=== PATIENT | male | born 1935 | race Caucasian/White ===

== ENCOUNTER 2018-06-15 19:24 | Emergency (ER) | payer MEDICARE ==
[2018-06-15] MEDS ORDERED: GENTAMICIN SULFATE 0.3% OPTH 5 ML BTL OPTH ONE (20:43)
[2018-06-15] MEDS ORDERED: AMOXICILLIN/POTASSIUM CLAV 875MG/125MG TABLET PO ONE (20:43)
--- NOTE | 2018-06-15 20:44 | Emergency Department Record ---
History of Present Illness - General Chief complaint: Eye Problem Stated complaint: EYE SWOLLEN Time Seen by Provider: 06/15/18 19:44 Source: Patient, Family Mode of Arrival: Wheelchair Limitations: No limitations Travel/Exposure to [place] Within 21 Days of Symptoms: No - History of Present Illness Initial comments: pt is here because he has redness and irritation of his l eye. he recently was hospitalized for r periorbital cellulitis at [facility]. chief complaint: Eye pain, Eye redness Onset/Timin -: Days(s) Onset Description: Gradual Location: Left eye Place: Home Eye Symptoms: Redness Severity: Mild If Pain, Quality: Burning Consistency: Constant Associated Symptoms: None Treatments Prior to Arrival: None - Related Data Home Medications Medication Instructions Recorded Confirmed Last Taken Alprazolam [Xanax] 0.5 mg PO TID PRN 06/15/18 06/15/18 Unknown Aspirin 81 mg PO DAILY 06/15/18 06/15/18 Unknown Atorvastatin Calcium [Lipitor] 40 mg PO QPM 06/15/18 06/15/18 Unknown Cholecalciferol (Vitamin D3) 1,000 unit PO DAILY 06/15/18 06/15/18 Unknown [Vitamin D3] Lamotrigine [Lamictal] 25 mg PO QPM 06/15/18 06/15/18 Unknown Levothyroxine Sodium 88 mcg PO DAILY 06/15/18 06/15/18 Unknown Losartan Potassium [Cozaar] 25 mg PO DAILY 06/15/18 06/15/18 Unknown Pantoprazole Sodium [Protonix] 20 mg PO DAILY 06/15/18 06/15/18 Unknown Previous Rx's Medication Instructions Recorded Amoxicillin/Potassium Clav 1 tab PO BID #14 tab 06/15/18 [Augmentin 875-125 Tablet] Allergies Allergy/AdvReac Type Severity Reaction Status Date / Time clindamycin Allergy SWELLING Verified 06/15/18 20:42 OF THE TONGUE Travel Screening - Travel/Exposure Within Last 30 Days Have you traveled within the last 30 days?: No - Travel Symptoms Symptom Screening: None Review of Systems Reviewed: No additional complaints except as noted below Constitutional: Reports: As per HPI. Denies: Chills, Fever, Malaise, Night sweats, Weakness, Weight change Eyes: Reports: As per HPI. Denies: Eye discharge, Eye pain, Photophobia, Vision change ENT: Reports: As per HPI. Denies: Congestion, Dental pain, Ear pain, Epistaxis , Hearing loss, Throat pain Respiratory: Reports: As per HPI. Denies: Cough, Dyspnea, Hemoptysis, Stridor, Wheezes Cardiovascular: Reports: As per HPI. Denies: Arrhythmia, Chest pain, Dyspnea on exertion, Edema, Murmurs, Orthopnea, Palpitations, Paroxysmal nocturnal dyspnea, Rheumatic Fever, Syncope Endocrine: Reports: As per HPI. Denies: Fatigue, Heat or cold intolerance, Polydipsia, Polyuria Gastrointestinal: Reports: As per HPI. Denies: Abdominal pain, Constipation, Diarrhea, Hematemesis, Hematochezia, Melena, Nausea, Vomiting Genitourinary: Reports: As per HPI. Denies: Dysuria, Frequency, Hematuria, Incontinence, Retention, Testicular pain, Testicular mass, Urgency Musculoskeletal: Reports: As per HPI. Denies: Arthralgia, Back pain, Gout, Joint swelling, Myalgia, Neck pain Skin: Reports: As per HPI. Denies: Bruising, Change in color, Change in hair/ nails, Lesions, Pruritus, Rash Neurological: Reports: As per HPI. Denies: Abnormal gait, Confusion, Headache, Numbness, Paresthesias, Seizure, Tingling, Tremors, Vertigo, Weakness Psychiatric: Reports: As per HPI. Denies: Anxiety, Auditory hallucinations, Depression, Homicidal thoughts, Suicidal thoughts, Visual hallucinations Hematological/Lymphatic: Reports: As per HPI. Denies: Anemia, Blood Clots, Easy bleeding, Easy bruising, Swollen glands Past Medical History - SOCIAL HISTORY Smoking Status: Former smoker - RESPIRATORY Hx Respiratory Disorders: Yes Hx Sleep Apnea: Yes Hx of CPAP: Yes (just not lately) - CARDIOVASCULAR Hx Cardio Disorders: Yes Hx Edema: Yes (blockage in LLE) Hx Hypertension: Yes Comment:: high cholesterol - NEURO Hx Neuro Disorders: No - GI Hx GI Disorders: Yes Hx Reflux: Yes Hx Hiatal Hernia: Yes Comment:: Irregular BM's - Hx Genitourinary Disorders: No - ENDOCRINE Hx Endocrine Disorders: Yes Hx Thyroid Disease: Yes - MUSCULOSKELETAL Hx Musculoskeletal Disorders: Yes Hx Arthritis: Yes - PSYCH Hx Psych Problems: Yes Hx Anxiety: Yes Hx Depression: Yes (recent loss of ) - HEMATOLOGY/ONCOLOGY Hx Hematology/Oncology Disorders: Yes Hx Anemia: Yes Family Medical History Any Significant Family History?: Yes Hx Diabetes: Brother/Sister Hx Heart Disease: Father Physical Exam - General General Appearance: Alert, Oriented x3, Cooperative, Mild distress - Head Head exam: Normal inspection - Eye Eye exam: Normal appearance, PERRL, Conjunctival injection, EOMI Pupils: Normal accommodation - ENT ENT exam: Normal exam, Mucous membranes moist, Normal external ear exam, Normal orophraynx Ear exam: Normal external inspection. negative: External canal tenderness Nasal Exam: Normal inspection. negative: Discharge, Sinus tenderness Mouth exam: Normal external inspection, Tongue normal Teeth exam: Normal inspection. negative: Dental caries Throat exam: Normal inspection. negative: Tonsillar erythema, Tonsillar exudate - Neck Neck exam: Normal inspection, Full ROM. negative: Tenderness - Respiratory Respiratory exam: Normal lung sounds bilaterally. negative: Respiratory distress - Cardiovascular Cardiovascular Exam: Regular rate, Normal rhythm, Normal heart sounds - GI/Abdominal GI/Abdominal exam: Soft, Normal bowel sounds. negative: Tenderness - Rectal Rectal exam: Deferred - exam: Deferred - Extremities Extremities exam: Normal inspection, Full ROM, Normal capillary refill. negative: Tenderness - Back Back exam: Reports: Normal inspection, Full ROM. Denies: Muscle spasm, Rash noted, Tenderness - Neurological Neurological exam: Alert, CN II-XII intact, Normal gait, Oriented X3 - Psychiatric Psychiatric exam: Normal affect, Normal mood - Skin Skin exam: Dry, Intact, Normal color, Warm Course Vital Signs 06/15/18 19:31 Temperature 97.8 F Pulse Rate [ 68 Pulse Ox Probe] Respiratory 20 Rate Blood Pressure 150/74 [Left Arm] Pulse Ox 98 Disposition Disposition: Discharge Clinical Impression: Conjunctivitis Qualifiers: Conjunctivitis type: acute Acute conjunctivitis type: bacterial Laterality: left Qualified Code(s): H10.32 - Unspecified acute conjunctivitis, left eye Disposition: Home, Self-Care Condition: (1) Good Instructions: Conjunctivitis (ED) Additional Instructions: follow up with ophthamologist. return sooner if worse. gentamycin drops 2 drops 4 times a day for 5 days Prescriptions: Amoxicillin/Potassium Clav [Augmentin 875-125 Tablet] 1 tab PO BID #14 tab Quality - Blood Pressure Screening Does Patient Have Any of the Following: No Blood Pressure Classification: Hypertensive Reading Systolic Measurement: 150 Diastolic Measurement: 74
== END 2018-06-15 21:13 | disposition home or self-care (01) ==
LOC: ER 19:24
DX: H10.32 Unspecified acute conjunctivitis, left eye (principal)
CPT/HCPCS: 99282

== ENCOUNTER 2018-12-31 06:27 | Day surgery (SDC) | payer MEDICARE ==
[~2018-12-31 06:27] MED LIST: ACETAMINOPHEN 1,000 MG/100 ML BTL IV ONE
[2018-12-31] MEDS ORDERED: MIDAZOLAM HCL 2MG/2ML VIAL IV ONE (06:28)
[2018-12-31] MEDS ORDERED: FENTANYL PF 100MCG/2ML VIAL IV ONE (06:28)
[2018-12-31] MEDS ORDERED: PROPOFOL 10 MG/ML VIAL IV ONE (06:28)
[2018-12-31] MEDS ORDERED: LIDOCAINE 2% MDV (20MG/ML) 20ML VIAL IV ONE (06:28)
[2018-12-31] MEDS ORDERED: RINGERS SOLUTION,LACTATED 1,000 ML IV ONE (06:55)
[2018-12-31] MEDS ORDERED: BUPIVACAINE 0.25% W/EPI MPF 30ML VIAL SQ ONE (08:32)
[2018-12-31] MEDS ORDERED: RINGERS LACTATED IV ONE (08:36)
--- NOTE | 2019-01-01 09:20 | Operative Note ---
DATE OF SERVICE: 12/31/2018. DATE OF SURGERY: 12/31/2018. PREOPERATIVE DIAGNOSIS: Left lower extremity weakness. POSTOPERATIVE DIAGNOSIS: Left lower extremity weakness. OPERATION: Excisional biopsy, left vastus lateralis. SURGEON: Eric Rothman D.O. REFERRING PHYSICIAN: Oliverio Blackburn D.O. INDICATION: Patient is an 83-year-old male who comes in for left lower extremity biopsy to rule out myositis or any other cause for his left lower extremity weakness. PROCEDURE: He was brought to the operating room, placed in the supine position. Local, IV sedation was given per Department of Anesthesia. Patient's left leg was prepped in usual fashion. At the junction of the lateral aspect of his left vastus lateralis, this area was prepped and draped in usual fashion. Area over the muscle was anesthetized with 10 mL of 0.25% Sensorcaine with epinephrine. A 3.5 cm incision was made. This was carried down to the fascia overlying the left vastus lateralis. This was incised. A 3 x 3 cm piece of muscle was excised and passed off the field. This was placed in a saline-soaked gauze specimen container. The wound was noted to be hemostatic. The fascia overlying the muscle was closed with 2-0 Vicryl. The skin was closed with 3 and 4-0 Vicryl. He was taken to recovery in satisfactory condition. Final pathology pending. [facility]
== END 2018-12-31 09:18 | disposition home or self-care (01) ==
LOC: SUR 06:27
PROVIDERS: ATTEND Surgery
DX: M62.81 Muscle weakness (generalized) (principal); I10 Essential (primary) hypertension; E78.00 Pure hypercholesterolemia, unspecified; E78.5 Hyperlipidemia, unspecified; E03.9 Hypothyroidism, unspecified
CPT/HCPCS: J7120

== ENCOUNTER 2019-01-10 10:00 | Emergency (ER) | payer MEDICARE ==
--- NOTE | 2019-01-10 11:19 | Emergency Department Record ---
History of Present Illness - General Chief Complaint: Neck Injury/Pain Stated Complaint: NECK PAIN Time Seen by Provider: 01/10/19 11:12 Source: Patient Mode of Arrival: Ambulatory - History of Present Illness Initial Comments: The patient has fallen 5 times since July and his neck has been hurting on and off since then. He went to [facility] in October and he states his xray was negative then. When he tried to pick his head up from laying flat there is pain down his left arm or sometimes his right arm. His PCP ordered blood work and put him on prednisone which he says helped. Onset/Timin -: Month(s) Associated Symptoms: None Treatments Prior to Arrival: None - Related Data Home Medications Medication Instructions Recorded Confirmed Last Taken Prednisone [Prednisone 10Mg] 10 mg PO DAILY 01/10/19 01/10/19 01/10/19 Tramadol HCl [Ultram] 50 mg PO Q6H 01/10/19 01/10/19 01/09/19 Allergies Allergy/AdvReac Type Severity Reaction Status Date / Time clindamycin Allergy SWELLING Verified 01/10/19 10:41 OF THE TONGUE Travel Screening - Travel/Exposure Within Last 30 Days Have you traveled within the last 30 days?: No - Travel/Exposure Within Last Year Have you traveled outside the [place] in the last year?: No - Additonal Travel Details Have you been exposed to anyone with a communicable illness?: No - Travel Symptoms Symptom Screening: None Review of Systems Reviewed: No additional complaints except as noted below Constitutional: Reports: As per HPI. Denies: Chills, Fever, Malaise, Night sweats, Weakness, Weight change Eyes: Reports: As per HPI. Denies: Eye discharge, Eye pain, Photophobia, Vision change ENT: Reports: As per HPI. Denies: Congestion, Dental pain, Ear pain, Epistaxis , Hearing loss, Throat pain Respiratory: Reports: As per HPI. Denies: Cough, Dyspnea, Hemoptysis, Stridor, Wheezes Cardiovascular: Reports: As per HPI. Denies: Arrhythmia, Chest pain, Dyspnea on exertion, Edema, Murmurs, Orthopnea, Palpitations, Paroxysmal nocturnal dyspnea, Rheumatic Fever, Syncope Endocrine: Reports: As per HPI. Denies: Fatigue, Heat or cold intolerance, Polydipsia, Polyuria Gastrointestinal: Reports: As per HPI. Denies: Abdominal pain, Constipation, Diarrhea, Hematemesis, Hematochezia, Melena, Nausea, Vomiting Genitourinary: Reports: As per HPI. Denies: Dysuria, Frequency, Hematuria, Incontinence, Retention, Testicular pain, Testicular mass, Urgency Musculoskeletal: Reports: As per HPI. Denies: Arthralgia, Back pain, Gout, Joint swelling, Myalgia, Neck pain Skin: Reports: As per HPI. Denies: Bruising, Change in color, Change in hair/ nails, Lesions, Pruritus, Rash Neurological: Reports: As per HPI. Denies: Abnormal gait, Confusion, Headache, Numbness, Paresthesias, Seizure, Tingling, Tremors, Vertigo, Weakness Psychiatric: Reports: As per HPI. Denies: Anxiety, Auditory hallucinations, Depression, Homicidal thoughts, Suicidal thoughts, Visual hallucinations Hematological/Lymphatic: Reports: As per HPI. Denies: Anemia, Blood Clots, Easy bleeding, Easy bruising, Swollen glands Past Medical History - SOCIAL HISTORY Smoking Status: Former smoker Alcohol Use: None Drug Use: None - RESPIRATORY Hx Respiratory Disorders: Yes Hx Bronchitis: Yes (not recently) Hx COPD: No Hx Sleep Apnea: Yes Hx of CPAP: Yes (just not lately) Comment:: has dry chronic cough - CARDIOVASCULAR Hx Cardio Disorders: Yes Hx Edema: Yes (blockage in LLE) Hx Hypertension: Yes - NEURO Hx Neuro Disorders: No Hx Dizziness: Yes (with rapid position change) Hx Parkinson's Disease: No (rt hand gets shakey) Hx Weakness: Yes (both legs) - GI Hx GI Disorders: Yes Hx Reflux: Yes Hx Hiatal Hernia: Yes - Hx Genitourinary Disorders: No - ENDOCRINE Hx Endocrine Disorders: Yes Hx Thyroid Disease: Yes - MUSCULOSKELETAL Hx Musculoskeletal Disorders: Yes Hx Arthritis: Yes - PSYCH Hx Psych Problems: Yes Hx Anxiety: Yes - HEMATOLOGY/ONCOLOGY Hx Hematology/Oncology Disorders: Yes Hx Anemia: Yes Family Medical History Any Significant Family History?: No Hx Cancer: Brother/Sister *Cancer Comment: sister Hx Diabetes: Brother/Sister *Diabetes Comment: sister & brother Hx Heart Disease: Father Hx HTN: Brother/Sister Hx Seizures: Children *Seizure Comment: daughter Physical Exam - General General Appearance: Alert, Oriented x3, Cooperative, No acute distress - Head Head exam: Normal inspection - Eye Eye exam: Normal appearance, PERRL Pupils: Normal accommodation - ENT ENT exam: Normal exam, Mucous membranes moist, Normal external ear exam, Normal orophraynx, TM's normal bilaterally Ear exam: Normal external inspection. negative: External canal tenderness Nasal Exam: Normal inspection. negative: Discharge, Sinus tenderness Mouth exam: Normal external inspection, Tongue normal Teeth exam: Normal inspection. negative: Dental caries Throat exam: Normal inspection. negative: Tonsillar erythema, Tonsillar exudate - Neck Neck exam: Normal inspection, Full ROM, Tenderness (tender midline posteriorly mid cervical region.). negative: Lymphadenopathy, Meningismus - Respiratory Respiratory exam: Normal lung sounds bilaterally. negative: Respiratory distress - Cardiovascular Cardiovascular Exam: Regular rate, Normal rhythm, Normal heart sounds - GI/Abdominal GI/Abdominal exam: Soft, Normal bowel sounds. negative: Tenderness - Rectal Rectal exam: Deferred - exam: Deferred - Extremities Extremities exam: Normal inspection, Full ROM, Normal capillary refill. negative: Tenderness - Back Back exam: Reports: Normal inspection, Full ROM. Denies: Muscle spasm, Rash noted, Tenderness - Neurological Neurological exam: Alert, Normal gait, Oriented X3, Reflexes normal - Psychiatric Psychiatric exam: Normal affect, Normal mood - Skin Skin exam: Dry, Intact, Normal color, Warm Course Vital Signs 01/10/19 10:29 Temperature 97.8 F Pulse Rate 84 Respiratory 16 Rate Blood Pressure 128/74 Pulse Ox 98 Medical Decision Making - Management Options MDM Management: No Additional Work-up Planned - Data Complexity MDM Data: X-Ray Ordered and/or Reviewed (Noncontrast CT Cervical Spine: No acute fracture of subluxation. Multilevel degen. changes and multilevel narrowing of neuro formamina of Cervical spine.) Disposition Clinical Impression: Cervical disc disorder with radiculopathy of cervical region Disposition: Home, Self-Care Condition: (1) Good Instructions: Cervical Radiculopathy (ED), Neck Pain (ED) Additional Instructions: Continue present medications. No lifting with arms. No bending or twisting with upper body. Follow up with PCP for pain management and further consultation as needed. Quality - Quality Measures Quality Measures: N/A - Blood Pressure Screening Does Patient Have Any of the Following: No Blood Pressure Classification: Pre-Hypertensive BP Reading Systolic Measurement: 128 Diastolic Measurement: 74 Screening for High Blood Pressure: < Normal BP, F/U Not Required > [G8783]
[2019-01-10] MEDS ORDERED: ACETAMINOPHEN 325 MG TAB PO ONE (11:21)
--- NOTE | 2019-01-12 15:38 | CT SCAN REPORT ---
EXAM: CT SCAN CERVICAL SPINE WO CONTRAST HISTORY: FALL WITH NECK PAIN. TECHNIQUE: Noncontrast CT cervical spine. COMPARISON: None. FINDINGS: No acute fracture is seen. No evidence of dislocation. Significant disc space height loss at C5-6 with associated endplate osteophytes and bulge. Multilevel facet joint arthrosis. No definite high grade central spinal canal stenosis appreciated. Neural foraminal narrowing noted most prominently on the left at C2-3, bilaterally at C3-4, bilaterally at C4-5, bilaterally at C5-6. Visualized upper lungs are clear. Unremarkable CT appearance of the paravertebral soft tissues. Bilateral carotid artery calcifications are noted. IMPRESSION: 1. NO EVIDENCE OF ACUTE CERVICAL SPINE FRACTURE OR DISLOCATION. 2. 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 JOB NUMBER: [id number] MTDD
== END 2019-01-10 13:05 | disposition home or self-care (01) ==
LOC: ER 10:00
DX: M50.10 Cervical disc disorder with radiculopathy, unspecified cervical region (principal); I10 Essential (primary) hypertension; Z87.891 Personal history of nicotine dependence
CPT/HCPCS: 72125; 99283

== ENCOUNTER 2019-03-15 15:23 | Emergency (ER) | payer MEDICARE ==
[2019-03-15] MEDS ORDERED: 0.9 % SODIUM CHLORIDE 1,000 ML BAG IV ONE (15:33)
[2019-03-15] MEDS ORDERED: ONDANSETRON HCL IV 4 MG/2 ML VIAL IVP ONE ×2 (15:33→18:31)
--- NOTE | 2019-03-15 15:34 | Emergency Department Record ---
History of Present Illness - General Chief complaint: ENT Stated complaint: RT EYE SWELLING Time Seen by Provider: 03/15/19 15:27 Source: Patient, Family Mode of Arrival: Ambulatory Limitations: No limitations - History of Present Illness Initial comments: 83 yo male presents with progressive weakness, poor appetite and weight loss over several months. Today he developed nausea and dry heaves. He attributes it to a new antidepressant this week. No diarrhea. No abdominal pain. He saw his PCP Dr Blackburn earlier in the week. He was started on Trintellix. His last year and this has affected him. He has be fatigued, poor sleep either too much or unable. NO fevers. No chills. He regards his energy level as low. No chest pain. About 2-3 weeks ago he developed a chest cold that is nearly gone. No pain with eating, just no appetite. He developed lid swelling around the left eye over the last two days. Occasionally pain. He has some clear tears. No pus or crusting. With the lid swelling and tears if effects his vision. No injury to the eye. Additional history provided by the daughter. Similar history that he is weak, no appetite, anxious, depressed. MD complaint: Nausea, Vomiting, Other (Left eye swelling) -: Days(s) Description of Vomiting: Watery Description of Diarrhea: Water Associated Abdominal Pain: No Radiation: None Severity: Mild Improves with: Other Worsens with: Other Context: Other Associated Symptoms: Other - Related Data Home Medications Medication Instructions Recorded Confirmed Last Taken Vortioxetine Hydrobromide 5 mg PO DAILY 03/15/19 03/15/19 1 Day Ago [Trintellix] ~03/14/19 Allergies Allergy/AdvReac Type Severity Reaction Status Date / Time clindamycin Allergy SWELLING Verified 03/15/19 15:34 OF THE TONGUE Review of Systems Constitutional: Reports: Malaise, Weakness, Weight change. Denies: Chills, Fever, Night sweats Eyes: Reports: Eye discharge (clear on the left), Vision change. Denies: Eye pain, Photophobia ENT: Denies: Congestion, Throat pain Respiratory: Reports: As per HPI (2-3 weeks ago "chest cold"), Cough. Denies: Dyspnea, Hemoptysis, Stridor, Wheezes Cardiovascular: Denies: Chest pain, Edema, Palpitations, Syncope Endocrine: Reports: Fatigue. Denies: Polydipsia, Polyuria Gastrointestinal: Reports: Nausea, Vomiting. Denies: Abdominal pain, Constipation, Diarrhea, Melena Genitourinary: Denies: Dysuria, Frequency, Hematuria Musculoskeletal: Denies: Arthralgia, Back pain, Myalgia, Neck pain Skin: Denies: Bruising, Change in color, Rash Neurological: Reports: Weakness (generalized). Denies: Confusion, Headache, Numbness Psychiatric: Denies: Anxiety Hematological/Lymphatic: Denies: Blood Clots, Easy bleeding, Easy bruising Past Medical History - SOCIAL HISTORY Smoking Status: Former smoker Drug Use: None - RESPIRATORY Hx Respiratory Disorders: Yes Hx Bronchitis: Yes (not recently) Hx COPD: No Hx Sleep Apnea: Yes Hx of CPAP: Yes (just not lately) Comment:: has dry chronic cough - CARDIOVASCULAR Hx Cardio Disorders: Yes Hx Edema: Yes (blockage in LLE) Hx Hypertension: Yes - NEURO Hx Neuro Disorders: No Hx Dizziness: Yes (with rapid position change) Hx Parkinson's Disease: No (rt hand gets shakey) Hx Weakness: Yes (both legs) - GI Hx GI Disorders: Yes Hx Reflux: Yes Hx Hiatal Hernia: Yes - Hx Genitourinary Disorders: No - ENDOCRINE Hx Endocrine Disorders: Yes Hx Thyroid Disease: Yes - MUSCULOSKELETAL Hx Musculoskeletal Disorders: Yes Hx Arthritis: Yes - PSYCH Hx Psych Problems: Yes Hx Anxiety: Yes - HEMATOLOGY/ONCOLOGY Hx Hematology/Oncology Disorders: Yes Hx Anemia: Yes Family Medical History Hx Cancer: Brother/Sister *Cancer Comment: sister Hx Diabetes: Brother/Sister *Diabetes Comment: sister & brother Hx Heart Disease: Father Hx HTN: Brother/Sister Hx Seizures: Children *Seizure Comment: daughter Physical Exam - General General Appearance: Alert, Oriented x3, Cooperative, No acute distress Limitations: No limitations - Head Head exam: Atraumatic, Normocephalic, Normal inspection, Other (Scalp is not tender) Head exam detail: Other (no scalp rash) - Eye Eye exam: PERRL, Conjunctival injection, EOMI, Periorbital swelling (soft lid swelling, no warmth or redness. Clear tears. Not tender. ), Other (No abnormal warmth or erythema of the lid). negative: Normal appearance, Periorbital tenderness, Scleral icterus Pupils: negative: Irregular, Unequal Visual acuity (L) = 20/: 200 Visual acuity (R) = 20/: 25 With correction: Yes - ENT ENT exam: Normal exam, Mucous membranes moist, Normal orophraynx. negative: Muc ous membranes dry Ear exam: Normal external inspection Nasal Exam: Normal inspection Mouth exam: Normal external inspection Teeth exam: Normal inspection Throat exam: Normal inspection. negative: Tonsillar erythema, Tonsillomegaly - Neck Neck exam: Normal inspection, Full ROM. negative: Lymphadenopathy, Meningismus, Tenderness - Respiratory Respiratory exam: Rhonchi. negative: Accessory muscle use, Chest wall tenderness, Decreased breath sounds, Prolonged expiratory, Respiratory distress, Wheezes - Cardiovascular Cardiovascular Exam: Regular rate, Normal rhythm, Normal heart sounds Peripheral Pulses: 2+: Radial (R), Radial (L) - GI/Abdominal GI/Abdominal exam: Soft. negative: Distended, Guarding, Tenderness - Rectal Rectal exam: Deferred - exam: Deferred - Extremities Extremities exam: Normal inspection. negative: Pedal edema, Tenderness - Back Back exam: Denies: CVA tenderness (R), CVA tenderness (L) - Neurological Neurological exam: Alert, Oriented X3. negative: Altered - Psychiatric Psychiatric exam: Normal affect, Normal mood. negative: Agitated, Anxious - Skin Skin exam: Dry, Intact, Normal color, Warm Course - Reevaluation(s) Reevaluation #1: The CBC and CMP was reviewed No significant changes Mild anemia not significantly changed from a prior 03/15/19 16:13 EKG #1: 15:39 Rate: 67 Rhythm: sinus [place]: normal Intervals: Qtc 492 ST segments: CW LVH Prior: none The EYE was stained No uptake The AC is clear. Mild conjuctival injection EOMI Chemosis noted of the conjunctiva 03/15/19 18:[address] was read as orbital and periorbital edema with mild exophthalmos The CRP returned elevated at 9 The CRP is elevated at 101 The differential includes but is not limited to inflammatory, infectious, allergic Given the elevated inflammatory markers I recommend transfer for further work up where specialty consultation is available The patient prefers [facility] 03/15/19 18:19 [facility] contacted for transfer. Medical Decision Making - Lab Data Result diagrams: 03/15/19 15:40 03/15/19 15:40 Disposition Disposition: Transfer Clinical Impression: Nausea & vomiting, Orbital swelling, Elevated sedimentation rate, Elevated C- reactive protein (CRP) Disposition: Acute Care Hospital Transfer Transfer To: [facility] Reason For Transfer: Specialty consultation Accepting Physician: Jose Time Discussed w/Accepting Physician: 18:33 Condition: (2) Stable Forms: Patient Portal Access Time of Disposition: 18:11 Quality - Quality Measures Quality Measures: N/A - Blood Pressure Screening Does Patient Have Any of the Following: No Blood Pressure Classification: Pre-Hypertensive BP Reading Systolic Measurement: 159 Diastolic Measurement: 83 Screening for High Blood Pressure: < Pre-Hypertensive BP, F/U Documented > [G8950] Pre-Hypertensive Follow-up Interventions: Referral to alternative/primary care provider.
[2019-03-15 15:49] LABS: ABSOLUTE NEUTROPHIL COUNT 2.91; BASO % 0.3 % (0-6); EOS % 0.3 % (0-6); GRAN % 75.7 % (47-80); HEMATOCRIT 35.9 % (42.0-52.0); HEMOGLOBIN 11.6 gm/dl (14.0-18.0); LYMPH % 20.6 % (16-45); MEAN CELL VOLUME 104.1 fl (81-97); MEAN CORPUSCULAR HEMOGLOBIN 33.6 pg (27-33); MEAN CORPUSCULAR HGB CONC 32.3 g/dl (32-36); MEAN PLATELET VOLUME 8.6 fl (7.4-10.4); MONO % 3.1 % (0-9); PLATELET COUNT 315 K/uL (130-400); RED BLOOD COUNT 3.45 M/uL (4.40-5.70); WHITE BLOOD COUNT W/O DIFF 3.8 K/uL (4.2-12.2)
[2019-03-15 16:03] LABS: BLOOD UREA NITROGEN 18 mg/dL (8-23); CREATININE 0.6 mg/dL (0.7-1.2); EST GLOMERULAR FILTRATION RATE > 60 mL/min
[2019-03-15 16:04] LABS: TOTAL PROTEIN 7.9 g/dL (6.6-8.7)
[2019-03-15 16:06] LABS: GLUCOSE,RANDOM 140 mg/dL (74-109)
[2019-03-15 16:09] LABS: ALB/GLOB RATIO 0.8 (1.1-1.8); ALBUMIN 3.6 g/dL (4.0-5.0); ALKALINE PHOSPHATASE 100 U/L (40-129); ALT/SGPT 15 U/L (<41); AST/SGOT 19 U/L (10.0-50.0)
[2019-03-15 16:19] LABS: THYROID STIMULATING HORMONE 2.13 uIU/mL (0.270-4.20)
[2019-03-15 17:02] LABS: URINE APPEARANCE CLEAR; URINE BILIRUBIN NEGATIVE (NEGATIVE); URINE BLOOD TRACE-L (NEGATIVE); URINE COLOR YELLOW; URINE GLUCOSE (UA) NEGATIVE (NEGATIVE); URINE KETONE NEGATIVE (NEGATIVE); URINE LEUKOCYTE ESTERASE NEGATIVE (NEGATIVE); URINE NITRITE NEGATIVE (NEGATIVE); URINE PROTEIN NEGATIVE (NEGATIVE)
[2019-03-15 17:09] LABS: URINE BACTERIA NONE SEEN; URINE EPITHELIAL CELLS NONE SEEN (FEW); URINE RBC 0 - 2 (NONE SEEN); URINE WBC NONE SEEN (0-2/hpf)
[2019-03-15] MEDS ORDERED: METHYLPREDNISOLONE PF 125MG/VIAL IM ONE (18:05)
[2019-03-15] MEDS ORDERED: PIPERACILLIN SODIUM/TAZOBACTAM 4.5 GM in 0.9 % SODIUM CHLORIDE 100ML 100 ML IVPB ONE (18:05)
[2019-03-15] MEDS ORDERED: VANCOMYCIN HCL 1,000 MG in 0.9 % SODIUM CHLORIDE 250ML 250 ML IVPB ONE (18:31)
--- NOTE | 2019-03-18 17:49 | RADIOLOGY REPORT ---
EXAM: CHEST 2 VIEWS HISTORY: COUGH FOR THE PAST TWO WEEKS. NAUSEA AND DRY HEAVING. TECHNIQUE: AP and lateral upright views of the chest were obtained. COMPARISON: None. FINDINGS: There are low lung volumes. A moderate-sized hiatal hernia is present. The heart is upper normal in size. The mediastinum and pulmonary vasculature are normal. There is blunting of the left costophrenic angle suggesting a small effusion. There is minor bibasilar atelectasis. There are no visible acute pulmonary infiltrates. There is no pneumothorax. Degenerative changes are present within the spine and shoulders. IMPRESSION: 1. SMALL LEFT PLEURAL EFFUSION AND MILD BIBASILAR ATELECTASIS. 2. NO ACUTE PULMONARY INFILTRATES. 3. MODERATE HIATAL HERNIA. JOB NUMBER: [id number] MTDD
--- NOTE | 2019-03-18 18:22 | CT SCAN REPORT ---
EXAM: CT SCAN HEAD WO CONTRAST HISTORY: VERTIGO WITH LEFT FRONTOPARIETAL HEADACHE. SWOLLEN LEFT EYE. SYMPTOMS FOR THE PAST THREE DAYS. TECHNIQUE: Standard CT imaging of the brain was performed in the axial plane without contrast. HAND DOMINANCE: Right. ENCOUNTER: Not applicable. COMPARISON: None. FINDINGS: There is mild generalized atrophy. The ventricles and subarachnoid spaces are normal. Moderate chronic small vessel ischemic changes are present within the periventricular and subcortical white matter of both cerebral hemispheres. There is no mass, mass effect, intracranial hemorrhage, visible acute infarct, or abnormal extra-axial fluid. The skull is intact. There is mild non-specific fat stranding within the intraorbital fat with mild associated exophthalmus. Mild left periorbital soft tissue swelling is also present. The sinuses and mastoids are clear. IMPRESSION: 1. NO ACUTE INTRACRANIAL ABNORMALITY. 2. MILD ATROPHY AND MODERATE CHRONIC SMALL VESSEL ISCHEMIC CHANGES. 3. MILD LEFT INTRAORBITAL AND PERIORBITAL SOFT TISSUE SWELLING. Findings discussed with Dr. Landon Hernandez. JOB NUMBER: [id number] [facility]
== END 2019-03-15 20:03 | disposition short-term general hospital (02) ==
LOC: ER 15:23
DX: R70.0 Elevated erythrocyte sedimentation rate (principal); R79.82 Elevated C-reactive protein (CRP); H05.221 Edema of right orbit; R53.1 Weakness; R63.4 Abnormal weight loss; R11.2 Nausea with vomiting, unspecified; D64.9 Anemia, unspecified; R05 Cough; I10 Essential (primary) hypertension; Z87.891 Personal history of nicotine dependence
CPT/HCPCS: 70450; 71046; 80053; 81001; 83735; 84443; 85025; 85651; 86140; 93005; 93010; 96361; 96372; 96374; 96375; 99285; J2405; J2930; J7030; J7050

== ENCOUNTER 2019-04-04 10:20 | Day surgery (SDC) | payer MEDICARE ==
[2019-04-04] MEDS ORDERED: PROPOFOL 10 MG/ML VIAL IV ONE (10:21)
[2019-04-04] MEDS ORDERED: LIDOCAINE 2% MDV (20MG/ML) 20ML VIAL IV ONE (10:21)
--- NOTE | 2019-04-05 17:20 | Operative Note ---
DATE: 04/04/2019 OPERATION: ESOPHAGOGASTRODUODENOSCOPY. PREOPERATIVE DIAGNOSIS: Idiopathic chronic cough. POSTOPERATIVE DIAGNOSIS: Paraesophageal hernia, otherwise normal exam. PROCEDURE: After informed consent was obtained from the patient, he was placed in the left lateral decubitus position in the endoscopy suite, sedated and monitored by the department of anesthesia. A well-lubricated [id number] gastroscope was placed in the posterior oropharynx under direct visualization and passed to the proximal esophagus. The endoscope was advanced through the proximal, mid, and distal esophagus. The GE junction was unremarkable. There was what appeared to be a paraesophageal hernia. The remainder of the gastric body, antrum, pylorus, normal duodenal bulb and sweep were unremarkable. J-turn views of the proximal stomach again revealed a hernia. Photographs were taken. The endoscope was straightened and retracted from the patient with no new findings noted. RECOMMENDATIONS: At this point, it is unclear to me whether the hernia is responsible for his complaints and/or whether there is coexisting reflux although there is no endoscopic evidence to suggest any esophageal inflammatory changes. Another option could be perhaps chronic sinus issues, perhaps even the losartan although one would think the losartan would have less risk than CRISTOBAL inhibitor. Several options are available including considering an empiric trial of a PPI 40 mg of pantoprazole twice daily to see if this provides him with any relief. In addition, also the patient could perhaps to antihypertensive agents. I will discuss the matter further with him and have him follow up with Dr. Blackburn. As always, thank you for allowing me to participate in the healthcare of your patients. MAZIN
== END 2019-04-04 13:05 | disposition home or self-care (01) ==
LOC: HOP 10:20
PROVIDERS: ATTEND Internal Medicine Gastroenterology
DX: R05 Cough (principal); R63.4 Abnormal weight loss; Z87.19 Personal history of other diseases of the digestive system; K44.9 Diaphragmatic hernia without obstruction or gangrene; I10 Essential (primary) hypertension; E03.9 Hypothyroidism, unspecified; E78.00 Pure hypercholesterolemia, unspecified

== ENCOUNTER 2019-07-28 11:03 | Emergency (ER) | payer MEDICARE ==
[2019-07-28] MEDS ORDERED: ACETAMINOPHEN 325 MG TAB PO ONE (11:17)
--- NOTE | 2019-07-28 11:20 | Emergency Department Record ---
History of Present Illness - General Chief Complaint: Back Pain/Injury Stated Complaint: LOWER BACK PAIN 1 1/2 WEEKS Time Seen by Provider: 07/28/19 11:11 Source: Patient Mode of Arrival: Ambulatory Limitations: No limitations - History of Present Illness Initial Comments: The patient is here due to low back pain for 10 days. The onset was with lifting a heavy object at home and then he felt pain and a "POP" in his back. Since he has had low back pain that is much worse with any bending or walking. There is no radiation down the legs and no new leg numbness or weakness. MD Complaint: Back pain Onset/Timin -: Days(s) Similar Symptoms Previously: No Severity: Moderate Severity scale (1-10): 6 Quality: Aching Consistency: Constant, Intermittent Improves With: None Worsens With: None Context: Bending, While lifting Treatments Prior to Arrival: NSAIDS - Related Data Home Medications Medication Instructions Recorded Confirmed Last Taken Methylprednisolone [Medrol Dose 4 mg PO ASDIR 07/28/19 07/28/19 1 Day Ago Pack] ~07/27/19 Previous Rx's Medication Instructions Recorded Acetaminop W/ Codeine 300/30Mg 1 tab PO Q6H #12 tab 07/28/19 [Tylenol #3] Potassium Chloride 20 meq PO DAILY #7 tab.er.prt 07/28/19 Allergies Allergy/AdvReac Type Severity Reaction Status Date / Time clindamycin Allergy SWELLING Verified 07/28/19 11:11 OF THE TONGUE Travel Screening - Travel/Exposure Within Last 30 Days Have you traveled within the last 30 days?: No - Travel/Exposure Within Last Year Have you traveled outside the [place] in the last year?: No - Additonal Travel Details Have you been exposed to anyone with a communicable illness?: No - Travel Symptoms Symptom Screening: None Review of Systems Constitutional: Denies: Chills, Fever Eyes: Denies: Eye discharge ENT: Denies: Congestion Respiratory: Denies: Cough, Dyspnea Past Medical History - SOCIAL HISTORY Smoking Status: Former smoker Alcohol Use: None Drug Use: None - RESPIRATORY Hx Respiratory Disorders: Yes Hx Bronchitis: Yes (not recently) Hx COPD: No Hx Sleep Apnea: Yes Hx of CPAP: Yes (just not lately) Comment:: has dry chronic cough - CARDIOVASCULAR Hx Cardio Disorders: Yes Hx Edema: Yes (blockage in LLE) Hx Hypertension: Yes Comment:: high cholesterol - NEURO Hx Neuro Disorders: Yes Hx Dizziness: Yes (with rapid position change) Hx Parkinson's Disease: No (rt hand gets shakey) Hx Weakness: Yes (both legs) - GI Hx GI Disorders: Yes Hx Reflux: Yes Hx Hiatal Hernia: Yes - Hx Genitourinary Disorders: No - ENDOCRINE Hx Endocrine Disorders: Yes Hx Thyroid Disease: Yes - MUSCULOSKELETAL Hx Musculoskeletal Disorders: Yes Hx Arthritis: Yes - PSYCH Hx Psych Problems: Yes Hx Anxiety: Yes - HEMATOLOGY/ONCOLOGY Hx Hematology/Oncology Disorders: Yes Hx Anemia: Yes Hx Cancer: No Hx Blood Transfusions: No Family Medical History Any Significant Family History?: Yes Hx Cancer: Brother/Sister *Cancer Comment: sister Hx Diabetes: Brother/Sister *Diabetes Comment: sister & brother Hx Heart Disease: Father Hx HTN: Brother/Sister Hx Seizures: Children *Seizure Comment: daughter Physical Exam - General General Appearance: Alert, Oriented x3, Cooperative, No acute distress - Head Head exam: Atraumatic, Normocephalic, Normal inspection - Eye Eye exam: Normal appearance, PERRL - Neck Neck exam: Normal inspection, Full ROM. negative: Tenderness - Respiratory Respiratory exam: Normal lung sounds bilaterally. negative: Respiratory distr ess - Cardiovascular Cardiovascular Exam: Regular rate, Normal rhythm, Normal heart sounds - GI/Abdominal GI/Abdominal exam: Soft, Normal bowel sounds. negative: Rebound, Rigid, Tenderness - Extremities Extremities exam: Normal inspection, Full ROM, Normal capillary refill. negati ve: Tenderness - Back Back exam: Reports: Normal inspection, Vertebral tenderness (There is mild L2-4 tenderness.) - Neurological Neurological exam: Alert, Normal gait. negative: Abnormal gait, Motor sensory deficit - Skin Skin exam: negative: Rash Course Vital Signs 07/28/19 11:04 Temperature 98.2 F Pulse Rate 78 Respiratory 20 Rate Blood Pressure 165/81 Pulse Ox 97 - Reevaluation(s) Reevaluation #1: I did discuss the xray results with the patient and the need for recheck with his PCP this week. He is to take the pain medicines and the short course of potassium as directed. The patient is to return to the ER for any worsening issues. 07/28/19 12:29 Medical Decision Making - Data Complexity MDM Data: Labs Ordered and/or Reviewed, X-Ray Ordered and/or Reviewed - Lab Data Result diagrams: 07/28/19 11:25 07/28/19 11:25 - Radiology Data Radiology results: Report reviewed (Lumbar Spine: L2 mild to mod comp fx.) Disposition Disposition: Discharge Clinical Impression: Hypokalemia Lumbar compression fracture Qualifiers: Encounter type: initial encounter Lumbar vertebra fracture level: L2 Qualified Code(s): S32.020A - Wedge compression fracture of second lumbar vertebra, initial encounter for closed fracture Disposition: Home, Self-Care Condition: (2) Stable Instructions: Vertebral Compression Fracture (ED) Additional Instructions: Please take Tylenol or Tylenol # 3 for pain and please take the oral Potassium as directed. Please see Dr. Orozco this week for recheck of your back and also to have your potassium rechecked. Please return to the ER for any worsening pain, leg numbness, weakness, or any trouble with your bowels or bladder. Prescriptions: Potassium Chloride 20 meq PO DAILY #7 tab.er.prt Acetaminop W/ Codeine 300/30Mg [Tylenol #3] 1 tab PO Q6H #12 tab Forms: Patient Portal Access Time of Disposition: 12:34 Quality - Quality Measures Quality Measures: N/A - Blood Pressure Screening View Details: Yes Does Patient Have Any of the Following: No Blood Pressure Classification: Pre-Hypertensive BP Reading Systolic Measurement: 165 Diastolic Measurement: 81 Screening for High Blood Pressure: < Pre-Hypertensive BP, F/U Documented > [G8950] Pre-Hypertensive Follow-up Interventions: Referral to alternative/primary care provider.
[2019-07-28 11:34] LABS: ABSOLUTE NEUTROPHIL COUNT 2.36; EOS % 1.1 % (0-6); GRAN % 62.6 % (47-80); HEMATOCRIT 38.3 % (42.0-52.0); HEMOGLOBIN 12.3 gm/dl (14.0-18.0); LYMPH % 32.9 % (16-45); MEAN CELL VOLUME 106.7 fl (81-97); MEAN CORPUSCULAR HGB CONC 32.1 g/dl (32-36); MEAN PLATELET VOLUME 9.1 fl (7.4-10.4); MONO % 3.4 % (0-9); PLATELET COUNT 156 K/uL (130-400); RED BLOOD COUNT 3.59 M/uL (4.40-5.70); RED CELL DISTRIBUTION WIDTH 15.8 % (11.5-14.5); WHITE BLOOD COUNT W/O DIFF 3.8 K/uL (4.2-12.2)
[2019-07-28 11:35] LABS: MEAN CORPUSCULAR HEMOGLOBIN 34.2 pg (27-33)
[2019-07-28 11:42] LABS: BLOOD UREA NITROGEN 21 mg/dL (8-23); CREATININE 0.5 mg/dL (0.7-1.2); EST GLOMERULAR FILTRATION RATE > 60 mL/min
[2019-07-28 11:43] LABS: TOTAL PROTEIN 5.9 g/dL (6.6-8.7)
[2019-07-28 11:45] LABS: GLUCOSE,RANDOM 131 mg/dL (74-109)
[2019-07-28 11:48] LABS: ALB/GLOB RATIO 1.8 (1.1-1.8); ALBUMIN 3.8 g/dL (4.0-5.0); ALKALINE PHOSPHATASE 76 U/L (40-129); ALT/SGPT 22 U/L (<41); AST/SGOT 14 U/L (10.0-50.0)
[2019-07-28] MEDS ORDERED: POTASSIUM CHLORIDE 20 MEQ TABLET PO ONE (12:00)
--- NOTE | 2019-07-28 12:18 | RADIOLOGY REPORT ---
EXAMINATION: Lumbar Spine Two or Three Views EXAM DATE: 07/28/2019 11:17 AM TECHNIQUE: AP and lateral views INDICATION: low back pain COMPARISON: 04/12/2019 ENCOUNTER: Initial FINDINGS: Stable alignment. There are 6 lumbar type vertebral bodies, numbered L1 through L6. New mild to moder ate compression deformity of L2. Mild degenerative disc disease throughout the lumbar spine with lowe r lumbar facet arthropathy, similar prior study. Unremarkable soft tissues. IMPRESSION: Mild to moderate compression deformity of L2, new compared to 04/12/2019. Dictated by: Landon Smith MD on 07/28/2019 12:13 PM. .
== END 2019-07-28 12:43 | disposition home or self-care (01) ==
LOC: ER 11:03
DX: S32.020A Wedge compression fracture of second lumbar vertebra, initial encounter for closed fracture (principal); E87.6 Hypokalemia; X50.0XXA Overexertion from strenuous movement or load, initial encounter; Y92.009 Unspecified place in unspecified non-institutional (private) residence as the place of occurrence of the external cause; I10 Essential (primary) hypertension; Z87.891 Personal history of nicotine dependence
CPT/HCPCS: 72100; 80053; 85025; 99284

== ENCOUNTER 2019-09-16 20:43 | Emergency (ER) | payer MEDICARE ==
[2019-09-16 21:14] LABS: URINE APPEARANCE CLEAR; URINE BILIRUBIN SMALL (NEGATIVE); URINE BLOOD TRACE-I (NEGATIVE); URINE GLUCOSE (UA) NEGATIVE (NEGATIVE); URINE KETONE TRACE (NEGATIVE); URINE LEUKOCYTE ESTERASE NEGATIVE (NEGATIVE); URINE NITRITE NEGATIVE (NEGATIVE); URINE PROTEIN NEGATIVE (NEGATIVE)
[2019-09-16 21:15] LABS: URINE COLOR DARK YELLOW
[2019-09-16 21:25] LABS: URINE BACTERIA NONE SEEN; URINE MUCUS MODERATE; URINE RBC 0 - 2 (NONE SEEN); URINE WBC NONE SEEN (0-2/hpf)
--- NOTE | 2019-09-16 21:32 | Emergency Department Record ---
History of Present Illness - General Chief Complaint: Back Pain/Injury Stated Complaint: RT FLANK PAIN Time Seen by Provider: 09/16/19 21:04 Source: Patient Mode of Arrival: Ambulatory Limitations: No limitations - History of Present Illness Initial Comments: 84 yo male presents to ED for evaluation of right sided low back pain symptoms that began this morning. Patient denies new injury, fevers, chills, nausea, vomiting, or urinary symptoms on examination. Patient reports pain with movement, change in position from sitting to standing. Patient reports L2 compression fracture following a fall in July, was taking Tylenol #3 for his pain symptoms that improved them. Patient reports that he is now out of his T#3, reports taking Tylenol over the counter for his pain symptoms without much relief. MD Complaint: Back pain Onset/Timin -: Days(s) Place: Home Severity: Moderate Severity scale (1-10): 3 Improves With: Immobilization Worsens With: Movement, Walking Context: While lifting Associated Symptoms: Denies other symptoms Treatments Prior to Arrival: Acetaminophen - Related Data Home Medications Medication Instructions Recorded Confirmed Last Taken Folic Acid 1 mg PO DAILY 09/16/19 09/16/19 09/16/19 Previous Rx's Medication Instructions Recorded Potassium Chloride 20 meq PO DAILY #7 tab.er.prt 07/28/19 Acetaminop W/ Codeine 300/30Mg 1 tab PO Q6H #10 tab 09/16/19 [Tylenol #3] Allergies Allergy/AdvReac Type Severity Reaction Status Date / Time clindamycin Allergy SWELLING Verified 07/28/19 11:11 OF THE TONGUE Travel Screening - Travel/Exposure Within Last 30 Days Have you traveled within the last 30 days?: No - Travel/Exposure Within Last Year Have you traveled outside the [place] in the last year?: No - Additonal Travel Details Have you been exposed to anyone with a communicable illness?: No - Travel Symptoms Symptom Screening: None Review of Systems Constitutional: Denies: Chills, Fever, Malaise, Night sweats Eyes: Denies: Eye discharge, Eye pain ENT: Denies: Congestion, Ear pain, Epistaxis Respiratory: Denies: Cough, Dyspnea Cardiovascular: Denies: Chest pain, Dyspnea on exertion Endocrine: Denies: Fatigue, Heat or cold intolerance Gastrointestinal: Denies: Abdominal pain, Nausea, Vomiting Genitourinary: Denies: Incontinence, Retention Musculoskeletal: Reports: Back pain. Denies: Arthralgia Skin: Denies: Bruising, Change in color Neurological: Denies: Abnormal gait, Confusion, Headache, Seizure Psychiatric: Denies: Anxiety Hematological/Lymphatic: Denies: Anemia, Blood Clots Past Medical History - SOCIAL HISTORY Smoking Status: Former smoker Alcohol Use: None Drug Use: None - RESPIRATORY Hx Respiratory Disorders: Yes Hx Bronchitis: Yes (not recently) Hx COPD: No Hx Sleep Apnea: Yes Hx of CPAP: Yes (just not lately) Comment:: has dry chronic cough - CARDIOVASCULAR Hx Cardio Disorders: Yes Hx Edema: Yes (blockage in LLE) Hx Hypertension: Yes Comment:: high cholesterol - NEURO Hx Neuro Disorders: Yes Hx Dizziness: Yes (with rapid position change) Hx Parkinson's Disease: No (rt hand gets shakey) Hx Weakness: Yes (both legs) - GI Hx GI Disorders: Yes Hx Reflux: Yes Hx Hiatal Hernia: Yes - Hx Genitourinary Disorders: No - ENDOCRINE Hx Endocrine Disorders: Yes Hx Thyroid Disease: Yes - MUSCULOSKELETAL Hx Musculoskeletal Disorders: Yes Hx Arthritis: Yes - PSYCH Hx Psych Problems: Yes Hx Anxiety: Yes - HEMATOLOGY/ONCOLOGY Hx Hematology/Oncology Disorders: Yes Hx Anemia: Yes Hx Cancer: No Hx Blood Transfusions: No Family Medical History Any Significant Family History?: Yes Hx Cancer: Brother/Sister *Cancer Comment: sister Hx Diabetes: Brother/Sister *Diabetes Comment: sister & brother Hx Heart Disease: Father Hx HTN: Brother/Sister Hx Seizures: Children *Seizure Comment: daughter Physical Exam - General General Appearance: Alert, Oriented x3, Cooperative, No acute distress, Other (Patient is well appearing on examination in no distress) Limitations: No limitations - Head Head exam: Atraumatic, Normocephalic, Normal inspection Head exam detail: negative: Abrasion, Contusion, Silva's sign, General tender ness, Hematoma, Laceration - Eye Eye exam: Normal appearance. negative: Conjunctival injection, Periorbital swelling, Periorbital tenderness, Scleral icterus - ENT Ear exam: negative: Auricular hematoma, Auricular trauma Nasal Exam: negative: Active bleeding, Discharge, Dried blood, Foreign body Mouth exam: negative: Drooling, Laceration, Muffled voice, Tongue elevation - Neck Neck exam: Normal inspection. negative: Meningismus, Tenderness - Respiratory Respiratory exam: Normal lung sounds bilaterally. negative: Rales, Respiratory distress, Rhonchi, Stridor - Cardiovascular Cardiovascular Exam: Regular rate, Normal rhythm, Normal heart sounds - GI/Abdominal GI/Abdominal exam: Soft. negative: Rebound, Rigid, Tenderness - Rectal Rectal exam: Deferred - exam: Deferred - Extremities Extremities exam: Normal inspection. negative: Pedal edema, Tenderness - Back Back exam: Reports: Paraspinal tenderness (Mild TTP at the SI joint of the right, no vertebral TTP on examination.). Denies: CVA tenderness (R), CVA tenderness (L), Vertebral tenderness - Neurological Neurological exam: Alert, Normal gait, Oriented X3 - Psychiatric Psychiatric exam: Normal affect, Normal mood - Skin Skin exam: Normal color. negative: Abrasion Type of lesion: negative: abrasion Course Vital Signs 09/16/19 21:18 Pulse Rate [ 102 H Right] Respiratory 20 Rate Blood Pressure 149/102 [Left Arm] Pulse Ox 100 - Reevaluation(s) Reevaluation #1: 09/16/19 21:29 Laboratory studies were reviewed: UA appears normal without infection. Given the absence of fall or recurrent injury and no midline vertebral tenderness, reproducible pain to the right SI joint region, radiographs do not appear indicated based on my examination. Findings appears c/w myofascial strain to the SI joint region. Patient apepars stable for discharge with Tylenol #3 as needed, return to ED for any worsening of his symptoms. Medical Decision Making - Lab Data Lab Results 09/16/19 Range/Units 21:10 Urine Color Dark yellow Urine Appearance Clear Urine pH 5.5 (5.0-8.0) Ur Specific [place] 1.025 (1.002-1.030) Urine Protein Negative (NEGATIVE) Urine Glucose (UA) Negative (NEGATIVE) Urine Ketones Trace H (NEGATIVE) Urine Blood Trace-i (NEGATIVE) Urine Nitrite Negative (NEGATIVE) Urine Bilirubin Small H (NEGATIVE) Urine Urobilinogen 2.0 H (0.20 - 1.00) E.U./dL Ur Leukocyte Esterase Negative (NEGATIVE) Disposition Disposition: Discharge Clinical Impression: Low back pain Qualifiers: Chronicity: acute Back pain laterality: right Sciatica presence: without sciatica Qualified Code(s): M54.5 - Low back pain Disposition: Home, Self-Care Condition: (2) Stable Instructions: Low Back Strain (ED) Additional Instructions: Return to ED if your symptoms worsen or if you have any concerns. Tylenol #3 as directed. Follow-up with your family doctor in 3-5 days as directed. Prescriptions: Acetaminop W/ Codeine 300/30Mg [Tylenol #3] 1 tab PO Q6H #10 tab Time of Disposition: 21:29 Quality - Quality Measures Quality Measures: N/A - Blood Pressure Screening Does Patient Have Any of the Following: Active Dx of HTN Blood Pressure Classification: Hypertensive Reading Systolic Measurement: 149 Diastolic Measurement: 102 Screening for High Blood Pressure: Patient Exclusion, Hx of HTN [G9744]
== END 2019-09-16 21:38 | disposition home or self-care (01) ==
LOC: ER 20:43
DX: S33.6XXA Sprain of sacroiliac joint, initial encounter (principal); I10 Essential (primary) hypertension; Z87.891 Personal history of nicotine dependence; X50.9XXA Other and unspecified overexertion or strenuous movements or postures, initial encounter; Y92.009 Unspecified place in unspecified non-institutional (private) residence as the place of occurrence of the external cause
CPT/HCPCS: 81001; 99283

== ENCOUNTER 2019-09-18 15:13 | Emergency (ER) | payer MEDICARE ==
--- NOTE | 2019-09-18 15:39 | Emergency Department Record ---
History of Present Illness - General Chief Complaint: Back Pain/Injury Stated Complaint: BACK PAIN Time Seen by Provider: 09/18/19 15:29 Source: Patient, RN notes reviewed - History of Present Illness Initial Comments: patient said right low back pain and started to flare up about one week ago and seen here two days ago and he could not get off the floor and called EMS and was brought in. Initial injury in jun 2018 lifting the hitch of a trailor. Seen here in jun 2019. Patient was given tylenol #3 on monday and has about 6 left Onset/Timin -: Week(s) Similar Symptoms Previously: Yes (previous L2 fx.) Place: Home Radiation: Right leg Severity: Mild Severity scale (1-10): 4 Quality: Stabbing Consistency: Constant Improves With: Immobilization Worsens With: Movement Context: Unknown Associated Symptoms: Denies other symptoms Treatments Prior to Arrival: Other medications Treatment Prior to Arrival Comment:: T3 x 1 about 1030 09/18/2019. - Related Data Home Medications Medication Instructions Recorded Confirmed Last Taken Amitriptyline HCl [Elavil] 10 mg PO 09/18/19 09/18/19 Unknown Prednisone [Prednisone 10Mg] 2 tab PO DAILY 09/18/19 09/18/19 Unknown Previous Rx's Medication Instructions Recorded Acetaminop W/ Codeine 300/30Mg 1 tab PO Q6H #10 tab 09/16/19 [Tylenol #3] Tizanidine HCl [Zanaflex] 4 mg PO TID #30 capsule 09/18/19 Allergies Allergy/AdvReac Type Severity Reaction Status Date / Time clindamycin Allergy SWELLING Verified 09/18/19 15:24 OF THE TONGUE Travel Screening - Travel/Exposure Within Last 30 Days Have you traveled within the last 30 days?: No - Travel/Exposure Within Last Year Have you traveled outside the [place] in the last year?: No - Additonal Travel Details Have you been exposed to anyone with a communicable illness?: No - Travel Symptoms Symptom Screening: None Review of Systems Reviewed: No additional complaints except as noted below Constitutional: Reports: As per HPI. Denies: Chills, Fever, Malaise, Night sweats, Weakness, Weight change Eyes: Reports: As per HPI. Denies: Eye discharge, Eye pain, Photophobia, Vision change ENT: Reports: As per HPI. Denies: Congestion, Dental pain, Ear pain, Epistaxis, Hearing loss, Throat pain Respiratory: Reports: As per HPI. Denies: Cough, Dyspnea, Hemoptysis, Stridor, Wheezes Cardiovascular: Reports: As per HPI. Denies: Arrhythmia, Chest pain, Dyspnea on exertion, Edema, Murmurs, Orthopnea, Palpitations, Paroxysmal nocturnal dyspnea, Rheumatic Fever, Syncope Endocrine: Reports: As per HPI. Denies: Fatigue, Heat or cold intolerance, Polydipsia, Polyuria Gastrointestinal: Reports: As per HPI. Denies: Abdominal pain, Constipation, Diarrhea, Hematemesis, Hematochezia, Melena, Nausea, Vomiting Genitourinary: Reports: As per HPI. Denies: Dysuria, Frequency, Hematuria, Incontinence, Retention, Testicular pain, Testicular mass, Urgency Musculoskeletal: Reports: As per HPI, Back pain. Denies: Arthralgia, Gout, Joint swelling, Myalgia, Neck pain Skin: Reports: As per HPI. Denies: Bruising, Change in color, Change in hair/nails, Lesions, Pruritus, Rash Neurological: Reports: As per HPI. Denies: Abnormal gait, Confusion, Headache, Numbness, Paresthesias, Seizure, Tingling, Tremors, Vertigo, Weakness Psychiatric: Reports: As per HPI. Denies: Anxiety, Auditory hallucinations, Depression, Homicidal thoughts, Suicidal thoughts, Visual hallucinations Hematological/Lymphatic: Reports: As per HPI. Denies: Anemia, Blood Clots, Easy bleeding, Easy bruising, Swollen glands Past Medical History - SOCIAL HISTORY Smoking Status: Former smoker Alcohol Use: None Drug Use: None - RESPIRATORY Hx Respiratory Disorders: Yes Hx Bronchitis: Yes (not recently) Hx COPD: No Hx Sleep Apnea: Yes Hx of CPAP: Yes (just not lately) Comment:: has dry chronic cough - CARDIOVASCULAR Hx Cardio Disorders: Yes Hx Edema: Yes (blockage in LLE) Hx Hypertension: Yes Comment:: high cholesterol - NEURO Hx Neuro Disorders: Yes Hx Dizziness: Yes (with rapid position change) Hx Parkinson's Disease: No (rt hand gets shakey) Hx Weakness: Yes (both legs) - GI Hx GI Disorders: Yes Hx Reflux: Yes Hx Hiatal Hernia: Yes - Hx Genitourinary Disorders: No - ENDOCRINE Hx Endocrine Disorders: Yes Hx Thyroid Disease: Yes - MUSCULOSKELETAL Hx Musculoskeletal Disorders: Yes Hx Arthritis: Yes - PSYCH Hx Psych Problems: Yes Hx Anxiety: Yes - HEMATOLOGY/ONCOLOGY Hx Hematology/Oncology Disorders: Yes Hx Anemia: Yes Hx Cancer: No Hx Blood Transfusions: No Family Medical History Any Significant Family History?: No Hx Cancer: Brother/Sister *Cancer Comment: sister Hx Diabetes: Brother/Sister *Diabetes Comment: sister & brother Hx Heart Disease: Father Hx HTN: Brother/Sister Hx Seizures: Children *Seizure Comment: daughter Physical Exam - General General Appearance: Alert, Oriented x3, Cooperative, No acute distress - Head Head exam: Normal inspection - Eye Eye exam: Normal appearance, PERRL Pupils: Normal accommodation - ENT ENT exam: Normal exam, Mucous membranes moist, Normal external ear exam, Normal orophraynx, TM's normal bilaterally Ear exam: Normal external inspection. negative: External canal tenderness Nasal Exam: Normal inspection. negative: Discharge, Sinus tenderness Mouth exam: Normal external inspection, Tongue normal Teeth exam: Normal inspection. negative: Dental caries Throat exam: Normal inspection. negative: Tonsillar erythema, Tonsillar exudate - Neck Neck exam: Normal inspection, Full ROM. negative: Tenderness - Respiratory Respiratory exam: Normal lung sounds bilaterally. negative: Respiratory distress - Cardiovascular Cardiovascular Exam: Regular rate, Normal rhythm, Normal heart sounds - GI/Abdominal GI/Abdominal exam: Soft, Normal bowel sounds. negative: Tenderness - Rectal Rectal exam: Deferred - exam: Deferred - Extremities Extremities exam: Normal inspection, Full ROM, Normal capillary refill. negative: Tenderness - Back Back exam: Reports: Normal inspection, Full ROM, Muscle spasm, Tenderness. Denies: Rash noted - Neurological Neurological exam: Alert, Normal gait, Oriented X3, Reflexes normal - Psychiatric Psychiatric exam: Normal affect, Normal mood - Skin Skin exam: Dry, Intact, Normal color, Warm Course Vital Signs 09/18/19 15:15 Temperature 98 F Pulse Rate 76 Respiratory 20 Rate Blood Pressure 143/84 Pulse Ox 98 - Reevaluation(s) Reevaluation #1: patient is feeling better and his pain is a two 09/18/19 16:43 Disposition Clinical Impression: Lumbar strain Qualifiers: Encounter type: initial encounter Qualified Code(s): S39.012A - Strain of muscle, fascia and tendon of lower back, initial encounter Lumbar compression fracture Qualifiers: Encounter type: subsequent encounter Lumbar vertebra fracture level: L1 Fracture healing: with routine healing Qualified Code(s): S32.010D - Wedge compression fracture of first lumbar vertebra, subsequent encounter for fracture with routine healing Disposition: Home, Self-Care Condition: (1) Good Instructions: Low Back Strain (ED) Additional Instructions: heat to back three times a day follow up with his Dr tomorrow as scheduled return to Ed if worse Prescriptions: Tizanidine HCl [Zanaflex] 4 mg PO TID #30 capsule Forms: Patient Portal Access Time of Disposition: 16:45 Quality - Quality Measures Quality Measures: N/A - Blood Pressure Screening Does Patient Have Any of the Following: No Blood Pressure Classification: Pre-Hypertensive BP Reading Systolic Measurement: 143 Diastolic Measurement: 84 Screening for High Blood Pressure: < Pre-Hypertensive BP, F/U Documented > [[id number]] Pre-Hypertensive Follow-up Interventions: Referral to alternative/primary care provider.
[2019-09-18] MEDS ORDERED: ORPHENADRINE CITRATE 60MG/2ML VIAL IM ONE (15:40)
[2019-09-18] MEDS ORDERED: ACETAMINOPHEN 500 MG TABLET PO ONE (15:56)
== END 2019-09-18 16:56 | disposition home or self-care (01) ==
LOC: ER 15:13
DX: S39.012A Strain of muscle, fascia and tendon of lower back, initial encounter (principal); S32.010D Wedge compression fracture of first lumbar vertebra, subsequent encounter for fracture with routine healing; I10 Essential (primary) hypertension; Z87.891 Personal history of nicotine dependence; X58.XXXA Exposure to other specified factors, initial encounter
CPT/HCPCS: 96372; 99284; J2360